=== PATIENT | male | born 1960 | race African-American/Black ===

== ENCOUNTER 2023-03-18 14:25 | Outpatient (CLI) | payer BC ==
[2023-03-18] MEDS ORDERED: Iopamidol 370 76% 100 ML VIAL ONE (14:33)
== END 2023-03-18 14:26 | disposition home or self-care (01) ==
LOC: CT 14:25
PROVIDERS: ATTEND Family Medicine
DX: Z12.2 Encounter for screening for malignant neoplasm of respiratory organs (principal); E04.9 Nontoxic goiter, unspecified; E01.0 Iodine-deficiency related diffuse (endemic) goiter
CPT/HCPCS: 71260; 76536; 82565; Q9967